=== PATIENT | male | born 1990 | race Two or more races ===

== ENCOUNTER 2019-03-18 09:43 | Outpatient (CLI) | payer OTHER | END 2019-03-18 10:53 | disposition home or self-care (01) | LOC: LAB 09:43 | DX: J11.1 Influenza due to unidentified influenza virus with other respiratory manifestations (principal); J11.89 Influenza due to unidentified influenza virus with other manifestations ==

== ENCOUNTER 2019-04-08 09:12 | Outpatient (CLI) | payer OTHER | END 2019-04-08 09:20 | disposition home or self-care (01) | LOC: LAB 09:12 | DX: E78.49 Other hyperlipidemia (principal); R42 Dizziness and giddiness; Z00.00 Encounter for general adult medical examination without abnormal findings; Z11.3 Encounter for screening for infections with a predominantly sexual mode of transmission; Z11.4 Encounter for screening for human immunodeficiency virus [HIV] ==

== ENCOUNTER → 2020-11-06 09:41 | Outpatient (CLI) | payer OTHER | END | disposition home or self-care (01) | LOC: LAB 09:41 | PROVIDERS: ATTEND Pediatrics | DX: E88.81 Metabolic syndrome and other insulin resistance (principal); E78.00 Pure hypercholesterolemia, unspecified; D64.89 Other specified anemias; N39.8 Other specified disorders of urinary system; E11.9 Type 2 diabetes mellitus without complications; E55.9 Vitamin D deficiency, unspecified ==

== ENCOUNTER 2021-06-28 03:07 | Emergency (ER) | payer OTHER ==
[~2021-06-28] VITALS: Ht 177.8 cm; Wt 86.2 kg
== END 2021-06-28 13:19 | disposition home or self-care (01) ==
LOC: ER 03:07
DX: K52.89 Other specified noninfective gastroenteritis and colitis (principal)

== ENCOUNTER 2023-05-24 05:26 | Emergency (ER) | payer OTHER ==
[~2023-05-24] VITALS: Ht 177.8 cm; Wt 79.4 kg
== END 2023-05-24 08:16 | disposition home or self-care (01) ==
LOC: ER 05:26
DX: J06.9 Acute upper respiratory infection, unspecified (principal); R53.81 Other malaise